=== PATIENT | male | born 1930 | race Caucasian/White ===

== ENCOUNTER 2019-02-18 21:11 | Emergency (ER) | payer MEDICARE, OTHER ==
--- NOTE | 2019-02-18 21:39 | ED Physician Documentation ---
PD HPI HEAD INJURY - Stated complaint Stated Complaint: FALL/ARM LAC - Chief complaint Chief Complaint: Laceration - History obtained from History obtained from: Patient, Family - History of Present Illness Mechanism of head injury: Fell Where head injury occurred: Home Timing - onset: Today Location of injury: Left, Front Associated symptoms: Amnesia (has dementia and does not remember how this happened). No: LOC, AMS Symptoms improve with: Rest Symptoms worsen with: Palpation Contributing factors: Anticoagulated Similar symptoms before: Diagnosis (fall) Recently seen: Not recently seen - Additional information Additional information: 88-year-old male with advanced dementia was trying to get a cath from his deck and the deck was wet he slipped and fell he has an abrasion to his chest wall and his left forearm as well as an abrasion above his left eye. He is on Coumadin for atrial fibrillation and did not have loss of consciousness. Review of Systems Constitutional: denies: Fever Eyes: denies: Decreased vision Ears: denies: Ear pain Nose: denies: Congestion Throat: denies: Oral lesions / sores, Sore throat Cardiac: reports: Chest pain / pressure Respiratory: denies: Dyspnea GI: denies: Abdominal Pain, Nausea, Vomiting : denies: Dysuria PD PAST MEDICAL HISTORY - Past Medical History Cardiovascular: Hypertension, High cholesterol, Atrial fibrillation Respiratory: None Endocrine/Autoimmune: None GI: Ulcerative colitis, Other : None HEENT: None Psych: None Musculoskeletal: None Derm: None - Past Surgical History Past Surgical History: Yes General: Colonoscopy HEENT: Cataracts - Present Medications Home Medications: Ambulatory Orders Medication Instructions Recorded Confirmed RX: Warfarin [Coumadin] 5 - 10 mg ORAL DAILY 05/24/13 11/27/15 Rosuvastatin [Crestor] 5 mg PO DAILY 05/24/13 11/27/15 Mesalamine [Lialda] 2.4 gm PO BID 06/10/15 11/27/15 Digoxin [Lanoxin] 125 mcg PO DAILY 11/27/15 11/27/15 Multivitamin [Theragran] 1 each PO DAILY 11/27/15 11/27/15 RX: Metoprolol Tartrate 25 mg PO BID 11/27/15 11/27/15 Vitamin C-Quercetin- [place] Tablet 1 tab PO DAILY 11/27/15 11/27/15 Azithromycin [Zithromax] 250 mg PO DAILY #6 tablet 06/30/16 - Allergies Allergies/Adverse Reactions: Allergies Allergy/AdvReac Type Severity Reaction Status Date / Time No Known Drug Allergies Allergy Verified 11/24/15 19:27 - Social History Does the pt smoke?: No Smoking Status: Never smoker Does the pt drink ETOH?: No Does the pt have substance abuse?: No - Immunizations Immunizations are current?: Yes - POLST Patient has POLST: No PD ED PE NORMAL - Vitals Vital signs reviewed: Yes (hypertensive ) - General General: No acute distress, Well developed/nourished - HEENT HEENT: PERRL, EOMI, Other (small bruise to the left eyebrow) - Neck Neck: Supple, no meningeal sign, No bony TTP - Cardiac Cardiac: No murmur, Other (irregularly irregular ) - Respiratory Respiratory: No respiratory distress, Clear bilaterally, Other (abrasion across the middle of the chest) - Abdomen Abdomen: Soft, Non tender - Back Back: No CVA TTP, No spinal TTP - Derm Derm: Normal color, Warm and dry, No rash - Extremities Extremities: No deformity, No calf tenderness / cord, Other (There is a deep abrasion to the left forearm imbedded with ) - Neuro Neuro: No motor deficit, No sensory deficit Eye Opening: Spontaneous Motor: Obeys Commands Verbal: Confused GCS Score: 14 - Psych Psych: Normal mood, Normal affect Results - Vitals Vitals: Vital Signs - 24 hr 02/18/19 02/18/19 21:19 23:33 Temperature 36.8 C 37.1 C Heart Rate 86 86 Respiratory 17 18 Rate Blood Pressure 177/112 H 166/82 H O2 Saturation 97 99 Oxygen O2 Source Room air - Labs Labs: Laboratory Tests 02/18/19 02/18/19 02/18/19 21:38 21:38 21:38 WBC 6.8 RBC 4.93 Hgb 14.8 Hct 46.5 MCV 94.3 H MCH 30.0 MCHC 31.8 L RDW 13.6 Plt Count 209 MPV 11.7 H Neut # (Auto) 4.9 Lymph # (Auto) 1.3 L [place] # (Auto) 0.4 Eos # (Auto) 0.1 Baso # (Auto) 0.0 Absolute Nucleated RBC 0.00 Nucleated RBC % 0.0 PT 27.2 H INR 2.4 H Sodium 143 Potassium 3.8 Chloride 105 Carbon Dioxide 28 Anion Gap 10.0 BUN 17 Creatinine 0.7 Estimated GFR (MDRD) 107 Glucose 191 H Calcium 9.0 Total Bilirubin 0.7 AST 23 ALT 19 Alkaline Phosphatase 55 Total Protein 6.7 Albumin 3.5 Globulin 3.2 Albumin/Globulin Ratio 1.1 Lipase 37 - Rads (name of study) CT head Radiology: Prelim report reviewed (Impression: No acute or focal intracranial abnormality.), EMP read indepedently, See rad report PD MEDICAL DECISION MAKING - ED course Complexity details: reviewed old records, reviewed results, re-evaluated patient, considered differential, d/w patient, d/w family ED course: 88-year-old male with advanced dementia has had a fall he is on Coumadin he has a small abrasion to his forehead his CT scan of his head is without evidence of intracranial hemorrhage. He does have an abrasion to his left forearm and to his anterior chest wall. These are attended to by the emergency department technician preventative medicine who after application of 4% lidocaine is able to scrub the wounds clean. I inspected the wounds and they appear clean and they are dressed with telfa and gauze Departure - Departure Disposition: 01 Home, Self Care Clinical Impression: Abrasions of multiple sites, Fall on same level from slipping, tripping or stumbling, Chest wall contusion Condition: Stable Instructions: ED Abrasion, ED Contusion Chest Wall Follow-Up: Diego Sepulveda MD [Primary Care Provider] - Comments: Today it appears you have significant abrasions and these will heal over the next 3 weeks. The chest wall contusion may give you a problem with some pain within the next 5 days. Follow-up with Dr. Sepulveda. Discharge Date/Time: 02/18/19 23:48
[2019-02-18] MEDS ORDERED: LIDOCAINE TOPICAL 4% 50 ML BOTTLE MM STA (21:45)
[2019-02-18 21:56] LABS: ALBUMIN 3.5 g/dL (3.2-5.5); ALBUMIN/GLOBULIN RATIO 1.1 (1.0-2.2); BASOPHILS % (AUTO) 0.4 %; BILIRUBIN,TOTAL 0.7 mg/dL (0.2-1.0); CREATININE 0.7 mg/dL (0.6-1.2); EOSINOPHILS # (AUTO) 0.1 10^3/uL (0.0-0.7); HGB - HEMOGLOBIN 14.8 g/dL (14.0-18.0); LYMPHOCYTES # (AUTO) 1.3 10^3/uL (1.5-3.5); LYMPHOCYTES % (AUTO) 19.4 %; MEAN CORPUSCULAR HGB CONC 31.8 g/dL (32.0-36.0); MEAN CORPUSCULAR VOLUME 94.3 fL (80.0-94.0); MEAN PLATELET VOLUME 11.7 fL (7.4-11.4); MONOCYTES # (AUTO) 0.4 10^3/uL (0.0-1.0); NEUTROPHILS # (AUTO) 4.9 10^3/uL (1.5-6.6); NEUTROPHILS % (AUTO) 72.8 %; PLT - PLATELET COUNT 209 10^3/uL (130-450); RED BLOOD COUNT 4.93 10^6/uL (4.70-6.10); RED CELL DISTRIBUTION WIDTH 13.6 % (12.0-15.0); TOTAL PROTEIN 6.7 g/dL (6.7-8.2); WHITE BLOOD COUNT 6.8 x10^3/uL (4.8-10.8)
[2019-02-18 22:03] LABS: INR 2.4 (0.8-1.2); PT - PROTHROMBIN TIME 27.2 secs (9.9-12.6)
--- NOTE | 2019-02-18 22:23 | CT Report ---
Reason: GLF head injury coumadin Procedure Date: 02/18/2019 Accession Number: [id number] / [id number] Procedure: CT - HEAD WO CPT Code: FULL RESULT: EXAM: CT HEAD EXAM DATE: 02/18/2019 10:06 PM. CLINICAL HISTORY: Fall with head injury. On Coumadin. COMPARISON: HEAD W/O 06/30/2016 5:24 PM. TECHNIQUE: Multiaxial CT images were obtained from the foramen magnum to the vertex. Reformats: Sagittal and coronal. IV contrast: None. In accordance with CT protocol optimization, one or more of the following dose reduction techniques were utilized for this exam: automated exposure control, adjustment of mA and/or KV based on patient size, or use of iterative reconstructive technique. FINDINGS: Parenchyma: No intraparenchymal hemorrhage. No evidence of mass, midline shift, or CT findings of infarction. Merino-white differentiation is distinct. Extraaxial Spaces: Normal for age. No subdural or epidural collections identified. Ventricles: Normal in size and position. Sinuses and Orbits: Bilateral endoscopic sinus surgery, otherwise unremarkable. Bones: No evidence of fracture or calvarial defect. Other: None. IMPRESSION: No acute or focal intracranial abnormality. RADIA
[2019-02-18 23:34] VITALS: BP 166/82
== END 2019-02-18 23:48 | disposition home or self-care (01) ==
LOC: ED 21:11
DX: S20.319A Abrasion of unspecified front wall of thorax, initial encounter (principal); S50.812A Abrasion of left forearm, initial encounter; S00.81XA Abrasion of other part of head, initial encounter; W01.0XXA Fall on same level from slipping, tripping and stumbling without subsequent striking against object, initial encounter; Y93.89 Activity, other specified; Y92.008 Other place in unspecified non-institutional (private) residence as the place of occurrence of the external cause; I10 Essential (primary) hypertension; F03.90 Unspecified dementia, unspecified severity, without behavioral disturbance, psychotic disturbance, mood disturbance, and anxiety; Z79.01 Long term (current) use of anticoagulants
CPT/HCPCS: 36415; 70450; 80053; 83690; 85025; 85610; 99282; 99284

== ENCOUNTER 2019-09-15 16:54 | Emergency (ER) | payer MEDICARE, OTHER ==
[2019-09-15] MEDS ORDERED: BUFFERED LIDOCAINE 10 ML SYRINGE SUBQ STA (17:11)
--- NOTE | 2019-09-15 17:13 | ED Physician Documentation ---
PD HPI HEAD INJURY - Stated complaint Stated Complaint: HEAD INJURY - Chief complaint Chief Complaint: Laceration - History obtained from History obtained from: Patient, Family - History of Present Illness Mechanism of head injury: Fell Where head injury occurred: Home Timing - onset: Today Location of injury: Right, Front Quality of pain: Pain Associated symptoms: No: LOC, AMS, Amnesia, Nausea / vomiting, Neck pain, Paresthesias, Seizures, Ear drainage, Nasal drainage Symptoms improve with: Rest Symptoms worsen with: Palpation, Movement Contributing factors: Anticoagulated Similar symptoms before: Diagnosis (laceration) Recently seen: Not recently seen - Additional information Additional information: 88-year-old male with history of advanced dementia and atrial fibrillation on Coumadin was walking in his driveway when he fell forward onto his forehead and lacerated his right eyebrow. He came into the house did not have any specific complaints has not had any nausea or vomiting denies any pain in his neck. Review of Systems Constitutional: denies: Fever Eyes: denies: Decreased vision Ears: denies: Ear pain Nose: denies: Congestion Throat: denies: Sore throat Cardiac: denies: Chest pain / pressure Respiratory: denies: Dyspnea, Cough GI: denies: Vomiting PD PAST MEDICAL HISTORY - Past Medical History Cardiovascular: Hypertension, High cholesterol, Atrial fibrillation Respiratory: None Neuro: Alzhiemer's, Dementia Endocrine/Autoimmune: None GI: Ulcerative colitis, Other : None HEENT: None Psych: None Musculoskeletal: None Derm: None - Past Surgical History Past Surgical History: Yes General: Colonoscopy HEENT: Cataracts - Present Medications Home Medications: Ambulatory Orders Medication Instructions Recorded Confirmed Rosuvastatin [Crestor] 5 mg PO DAILY 05/24/13 11/27/15 Warfarin [Coumadin] 5 - 10 mg ORAL DAILY 05/24/13 11/27/15 Mesalamine [Lialda] 2.4 gm PO BID 06/10/15 11/27/15 Digoxin [Lanoxin] 125 mcg PO DAILY 11/27/15 11/27/15 Metoprolol Tartrate 25 mg PO BID 11/27/15 11/27/15 Multivitamin [Theragran] 1 each PO DAILY 11/27/15 11/27/15 Vitamin C-Quercetin- [place] Tablet 1 tab PO DAILY 11/27/15 11/27/15 Azithromycin [Zithromax] 250 mg PO DAILY #6 tablet 06/30/16 - Allergies Allergies/Adverse Reactions: Allergies Allergy/AdvReac Type Severity Reaction Status Date / Time No Known Drug Allergies Allergy Verified 11/24/15 19:27 - Social History Does the pt smoke?: No Smoking Status: Never smoker Does the pt drink ETOH?: No Does the pt have substance abuse?: No - Immunizations Immunizations are current?: Yes - POLST Patient has POLST: No PD ED PE NORMAL - Vitals Vital signs reviewed: Yes (hypertensive ) - General General: No acute distress, Well developed/nourished, Other ([employer] [place] and interactive. Just doesn't remember) - HEENT HEENT: PERRL, EOMI, Other (There is a laceration through the right eyebrow which is widely gapping. ) - Neck Neck: Supple, no meningeal sign, No bony TTP - Respiratory Respiratory: No respiratory distress Results - Vitals Vitals: Vital Signs - 24 hr 09/15/19 09/15/19 16:55 17:00 Temperature 36.4 C L 36.4 C L Heart Rate 86 86 Respiratory 17 17 Rate Blood Pressure 172/98 H 172/98 H O2 Saturation 98 98 Oxygen O2 Source Room air - Labs Labs: Laboratory Tests 09/15/19 17:25 Whole Blood INR 1.8 H - Rads (name of study) CT head w/o Radiology: Prelim report reviewed (Impression: 1. No acute intracranial findings. 2 Cerebral atrophy and chronic microvascular ischemic changes. 3 Right forehead scalp contusion.), EMP read indepedently, See rad report Procedures - Laceration (location) right eyebrow Length in cm: 4 Wound type: Irregular, Flap, Clean Neurovascular status: Sensory intact, Motor intact, Vascular intact Anesthesia: Lidocaine 1%, With bicarb Wound Preparation: Hibiclens, Irrigated copiously NS, Wound explored, To the base Skin layer closure: Nylon, Interrupted, Size #-0 - enter number (6-0) Other: Patient tolerated well, No complications, Neurovascular intact, Tetanus UTD Complexity: Simple PD MEDICAL DECISION MAKING - ED course Complexity details: reviewed results, re-evaluated patient, considered differential, d/w patient, d/w family ED course: 88-year-old male with a fall in driveway who is on Coumadin has had a laceration to his right eyebrow. He has no evidence of intracranial hemorrhage and his eyebrow laceration is sutured and he tolerates this well. Departure - Departure Disposition: 01 Home, Self Care Clinical Impression: Facial laceration Qualifiers: Encounter type: initial encounter Qualified Code(s): S01.81XA - Laceration without foreign body of other part of head, initial encounter Condition: Stable Instructions: ED Laceration Facial Sutr Tape Follow-Up: Diego Sepulveda MD [Primary Care Provider] - Comments: Sutures will need to be removed in 5 days. Your INR today was 1.8.
--- NOTE | 2019-09-15 17:57 | CT Report ---
Reason: trauma, coumadin Procedure Date: 09/15/2019 Accession Number: [id number] / [id number] Procedure: CT - HEAD WO CPT Code: Final Report FULL RESULT: EXAM: CT HEAD EXAM DATE: 09/15/2019 05:31 PM. CLINICAL HISTORY: Trauma, coumadin. COMPARISON: HEAD W/O 02/18/2019 10:01 PM. TECHNIQUE: Multiaxial CT images were obtained from the foramen magnum to the vertex. Reformats: Sagittal and coronal. IV contrast: None. In accordance with CT protocol optimization, one or more of the following dose reduction techniques were utilized for this exam: automated exposure control, adjustment of mA and/or KV based on patient size, or use of iterative reconstructive technique. FINDINGS: PARENCHYMA: No acute hemorrhage, transcortical infarction or mass. Periventricular and white matter hypointensities are nonspecific but most consistent with chronic microvascular ischemic changes. EXTRA-AXIAL SPACES: No extra-axial fluid collections. No midline shift. VENTRICLES/SULCI: Enlargement of the lateral and third ventricles with prominence of the cortical sulci consistent with moderate cerebral volume loss. VASCULAR STRUCTURES: Arterial calcifications consistent with atherosclerosis. SINUSES: The visible paranasal sinuses and mastoid air cells are unremarkable. ORBITS: Status post left cataract surgery. BONES: No displaced acute calvarial fracture. OTHER: Right forehead scalp contusion. IMPRESSION: 1. No acute intracranial findings. 2. Cerebral atrophy and chronic microvascular ischemic changes. 3. Right forehead scalp contusion. RADIA
[2019-09-15 18:41] VITALS: BP 164/91
== END 2019-09-15 18:43 | disposition home or self-care (01) ==
LOC: ED 16:54
DX: S01.111A Laceration without foreign body of right eyelid and periocular area, initial encounter (principal); W18.30XA Fall on same level, unspecified, initial encounter; Y93.01 Activity, walking, marching and hiking; Y92.008 Other place in unspecified non-institutional (private) residence as the place of occurrence of the external cause; G30.9 Alzheimer's disease, unspecified; F02.80 Dementia in other diseases classified elsewhere, unspecified severity, without behavioral disturbance, psychotic disturbance, mood disturbance, and anxiety; I48.91 Unspecified atrial fibrillation; Z79.01 Long term (current) use of anticoagulants; I10 Essential (primary) hypertension
CPT/HCPCS: 12013; 70450; 85610; 99283; 99284

== ENCOUNTER 2020-03-30 03:58 | Outpatient (CLI) | payer MEDICARE, OTHER | END 2020-03-30 23:59 | disposition critical access hospital (66) | LOC: EMS 03:58 | PROVIDERS: ATTEND Surgery | DX: S09.90XA Unspecified injury of head, initial encounter (principal); W19.XXXA Unspecified fall, initial encounter; Z91.81 History of falling; Y92.009 Unspecified place in unspecified non-institutional (private) residence as the place of occurrence of the external cause; Z79.01 Long term (current) use of anticoagulants | CPT/HCPCS: A0425; A0429 ==

== ENCOUNTER 2020-03-30 04:20 | Emergency (ER) | payer MEDICARE, OTHER ==
--- NOTE | 2020-03-30 04:26 | ED Physician Documentation ---
History of Present Illness - Stated complaint Stated Complaint: GLF, HIT HEAD - History obtained from History obtained from: EMS - Additonal information Additional information: 89-year-old male with baseline dementia was found down by his who then called 911 and the patient arrives via ambulance. The patient denies any complaints. Patient reports he got up to go the restroom tonight and then woke up lying on the ground. ems reports known hx of a fib on coumadin. Review of Systems Unable to obtain: Dementia PD PAST MEDICAL HISTORY - Past Medical History Cardiovascular: Hypertension, High cholesterol, Atrial fibrillation Respiratory: None Neuro: Alzhiemer's, Dementia Endocrine/Autoimmune: None GI: Ulcerative colitis, Other : None HEENT: None Psych: None Musculoskeletal: None Derm: None - Past Surgical History Past Surgical History: Yes General: Colonoscopy HEENT: Cataracts - Present Medications Home Medications: Ambulatory Orders Medication Instructions Recorded Confirmed Warfarin [Coumadin] 5 - 10 mg ORAL DAILY 05/24/13 03/30/20 Digoxin [Lanoxin] 125 mcg PO DAILY 11/27/15 03/30/20 Metoprolol Tartrate 25 mg PO BID 11/27/15 03/30/20 Balsalazide Disodium [Colazal] 750 mg PO BID 03/30/20 03/30/20 - Allergies Allergies/Adverse Reactions: Allergies Allergy/AdvReac Type Severity Reaction Status Date / Time No Known Drug Allergies Allergy Verified 03/30/20 04:38 - Social History Does the pt smoke?: No Smoking Status: Never smoker Does the pt drink ETOH?: No Does the pt have substance abuse?: No - Immunizations Immunizations are current?: Yes - POLST Patient has POLST: No PD ED PE NORMAL - Vitals Vital signs reviewed: Yes - General General: No acute distress, Well developed/nourished, Other (Pleasantly demented 89-year-old male in no) - HEENT HEENT: PERRL, Other (Small erythema and swelling noticed to the left temporal region no hemotympanum bilaterally no septal hematoma no acute missing teeth no raccoon eyes no christian sign) - Neck Neck: Supple, no meningeal sign, Other (No step-offs or deformities of the cervical spine) - Cardiac Cardiac: RRR, No murmur - Respiratory Respiratory: No respiratory distress, Clear bilaterally - Abdomen Abdomen: Normal bowel sounds, Soft, Non tender, Non distended, No organomegaly, Other (No midline abdominal pulsatile mass) - Back Back: No spinal TTP - Derm Derm: Normal color, Warm and dry, No rash - Extremities Extremities: No deformity, No tenderness to palpate, Normal ROM s pain, No edema, No calf tenderness / cord, Other (No deformities of bilateral upper or lower extremities) - Neuro 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 No gross neurological deficit) - Psych Psych: Normal mood, Normal affect Results - Vitals Vitals: Vital Signs - 24 hr 03/30/20 03/30/20 03/30/20 04:20 04:27 04:47 Temperature 36.7 C Heart Rate 97 102 H Respiratory 17 18 Rate Blood Pressure 174/119 H 174/110 H O2 Saturation 97 97 03/30/20 03/30/20 03/30/20 04:52 05:08 06:05 Temperature Heart Rate 101 H 101 H Respiratory 18 16 15 Rate Blood Pressure 145/82 H 155/94 H O2 Saturation 97 96 Oxygen O2 Source Room air - EKG (time done) 04:30 Rate: Other (no stemi) - Labs Labs: Laboratory Tests 03/30/20 03/30/20 03/30/20 04:20 04:20 04:20 WBC 15.2 H RBC 5.14 Hgb 15.6 Hct 48.7 MCV 94.7 H MCH 30.4 MCHC 32.0 RDW 13.0 Plt Count 198 MPV 11.4 Neut # (Auto) 13.7 H Lymph # (Auto) 0.6 L [place] # (Auto) 0.9 Eos # (Auto) 0.0 Baso # (Auto) 0.0 Absolute Nucleated RBC 0.00 Nucleated RBC % 0.0 PT 28.9 H INR 2.7 H APTT 34.6 H Sodium 141 Potassium 3.9 Chloride 108 Carbon Dioxide 26 Anion Gap 7.0 BUN 19 Creatinine 0.7 Estimated GFR (MDRD) 106 Glucose 151 H Calcium 9.0 Total Bilirubin 1.4 H AST 28 ALT 21 Alkaline Phosphatase 50 Total Creatine Kinase 460 H Troponin I High Sens B-Natriuretic Peptide Total Protein 6.8 Albumin 3.8 Globulin 3.0 Albumin/Globulin Ratio 1.3 Lipase 26 Ethyl Alcohol < 5.0 03/30/20 03/30/20 04:20 04:20 WBC RBC Hgb Hct MCV MCH MCHC RDW Plt Count MPV Neut # (Auto) Lymph # (Auto) [place] # (Auto) Eos # (Auto) Baso # (Auto) Absolute Nucleated RBC Nucleated RBC % PT INR APTT Sodium Potassium Chloride Carbon Dioxide Anion Gap BUN Creatinine Estimated GFR (MDRD) Glucose Calcium Total Bilirubin AST ALT Alkaline Phosphatase Total Creatine Kinase Troponin I High Sens 18.7 B-Natriuretic Peptide 163 H Total Protein Albumin Globulin Albumin/Globulin Ratio Lipase Ethyl Alcohol PD MEDICAL DECISION MAKING - ED course Complexity details: reviewed results, re-evaluated patient, considered differential (closed head injury, acs, electrolyte disorder, uti, progressive dementia and weakness), d/w patient ED course: 81-year-old male with recurrent falls CT of the head's negative CT of the cervical spine negative chest x-ray negative x-ray of the pelvis is negative EKG shows known atrial fibrillation there is no STEMI troponins not elevated CK is mildly elevated BNP mildly elevated as well patient has good follow-up today with his primary care provider. Departure - Departure Disposition: 01 Home, Self Care Clinical Impression: Weakness Condition: Stable Instructions: ED Fall Dizziness Weakn Balance Follow-Up: Diego Sepulveda MD [Primary Care Provider] - 03/30/20 Comments: With your primary care provider today.
[2020-03-30 04:34] LABS: BASOPHILS % (AUTO) 0.2 %; HGB - HEMOGLOBIN 15.6 g/dL (14.0-18.0); LYMPHOCYTES # (AUTO) 0.6 10^3/uL (1.5-3.5); LYMPHOCYTES % (AUTO) 3.8 %; MEAN CORPUSCULAR HEMOGLOBIN 30.4 pg (27.0-31.0); MEAN CORPUSCULAR VOLUME 94.7 fL (80.0-94.0); MEAN PLATELET VOLUME 11.4 fL (7.4-11.4); MONOCYTES # (AUTO) 0.9 10^3/uL (0.0-1.0); MONOCYTES % (AUTO) 5.7 %; NEUTROPHILS # (AUTO) 13.7 10^3/uL (1.5-6.6); NEUTROPHILS % (AUTO) 89.6 %; PLT - PLATELET COUNT 198 10^3/uL (130-450); RED BLOOD COUNT 5.14 10^6/uL (4.70-6.10); WHITE BLOOD COUNT 15.2 x10^3/uL (4.8-10.8)
[2020-03-30 04:40] LABS: INR 2.7 (0.8-1.2); PT - PROTHROMBIN TIME 28.9 secs (9.9-12.6)
[2020-03-30 04:44] LABS: ALBUMIN 3.8 g/dL (3.2-5.5); ALBUMIN/GLOBULIN RATIO 1.3 (1.0-2.2); ALKALINE PHOSPHATASE 50 IU/L (42-121); ALT ALANINE AMINOTRANSFERASE 21 IU/L (10-60); AST ASPARTATE AMINOTRANSFERASE 28 IU/L (10-42); BILIRUBIN,TOTAL 1.4 mg/dL (0.2-1.0); BUN - BLOOD UREA NITROGEN 19 mg/dL (6-20); CARBON DIOXIDE - CO2 26 mmol/L (21-32); CHLORIDE 108 mmol/L (101-111); CK- CREATINE KINASE 460 IU/L (22-269); CREATININE 0.7 mg/dL (0.6-1.2); GLUCOSE 151 mg/dL (70-100); LIPASE 26 U/L (22-51); SODIUM 141 mmol/L (135-145); TOTAL PROTEIN 6.8 g/dL (6.7-8.2)
[2020-03-30 04:48] LABS: PARTIAL THROMBOPLASTIN TIME 34.6 secs (24.9-33.3)
[2020-03-30 07:07] VITALS: BP 135/83
--- NOTE | 2020-03-30 07:20 | XRAY Report ---
PROCEDURE: Pelvis 1 View INDICATIONS: fall TECHNIQUE: 1 view(s) of the pelvis acquired. COMPARISON: None. FINDINGS: Bones: No fractures or dislocations. No suspicious bony lesions. Soft tissues: Visualized bowel gas pattern is normal. No suspicious soft tissue calcifications. IMPRESSION: No acute osseous abnormality. Reviewed by: Vangie Rene MD, PhD on 03/30/2020 7:18 AM PDT Approved by: Vangie Rene MD, PhD on 03/30/2020 7:18 AM PDT Station ID: [id number]
--- NOTE | 2020-03-30 07:35 | XRAY Report ---
PROCEDURE: Chest 1 View X-Ray INDICATIONS: fall TECHNIQUE: One view of the chest was acquired. COMPARISON: 09/15/2015 FINDINGS: Surgical changes and devices: None. Lungs and pleura: No pleural effusions or pneumothorax. Lungs are clear of acute opacities.2.0 x 0. 8 cm density in the lateral left mid-lung is stable compared to prior exams. Mediastinum: Mediastinal contours appear normal. Heart size is normal. Bones and chest wall: No suspicious bony lesions. Overlying soft tissues appear unremarkable. IMPRESSION: No acute cardiopulmonary disease process. Reviewed by: Vangie Rene MD, PhD on 03/30/2020 7:34 AM PDT Approved by: Vangie Rene MD, PhD on 03/30/2020 7:34 AM PDT Station ID: [id number]
--- NOTE | 2020-03-30 07:52 | CT Report ---
PROCEDURE: HEAD WO INDICATIONS: fall, head injury TECHNIQUE: Noncontrast 4.5 mm thick angled axial sections acquired from the foramen magnum to the vertex. For r adiation dose reduction, the following was used: automated exposure control, adjustment of mA and/or kV according to patient size. COMPARISON: CT head 02/18/2019, 09/15/2019 FINDINGS: Image quality: Excellent. The ventricular system and cortical sulci demonstrate atrophy, consistent for patient's stated age. There are areas of hypointensity in the periventricular and subcortical white matter. There is no ac [place] intra or extra-axial fluid collection. No acute hemorrhage, mass lesion or midline shift. Brain stem is unremarkable. Globes are symmetrical. Sinuses demonstrate trace maxillary sinus mucosal thic kening. Osseous structures are intact. IMPRESSION: 1. No acute intracranial process. 2. Moderate atrophy and chronic microvascular ischemic changes. The above findings are concordant with preliminary report. Reviewed by: Sunshine Batista MD on 03/30/2020 7:51 AM PDT Approved by: Sunshine Batista MD on 03/30/2020 7:51 AM PDT Station ID: [id number]
--- NOTE | 2020-03-30 07:56 | CT Report ---
PROCEDURE: CERVICAL SPINE WO INDICATIONS: fall neck pain TECHNIQUE: Noncontrast 3 mm thick sections acquired from the skull base to the T4 level. Sagittal and coronal r eformats were then constructed. For radiation dose reduction, the following was used: automated exp osure control, adjustment of mA and/or kV according to patient size. COMPARISON: None. FINDINGS: Image quality: Excellent. Bones: No fractures or dislocations. Visualized superior ribs are intact. There is severe multilev el degenerative disc space narrowing most notable at C4-5, C5-6, C6-7. Soft tissues: Prevertebral soft tissues are normal in thickness. No paravertebral hematomas. No ap ical pneumothoraces. IMPRESSION: 1. Multilevel degenerative changes without visualized fracture. The above findings are concordant with preliminary report. Reviewed by: Sunshine Batista MD on 03/30/2020 7:55 AM PDT Approved by: Sunshine Batista MD on 03/30/2020 7:55 AM PDT Station ID: [id number]
== END 2020-03-30 07:09 | disposition home or self-care (01) ==
LOC: EDUNIT# → ED 04:20
DX: S09.90XA Unspecified injury of head, initial encounter (principal); W18.30XA Fall on same level, unspecified, initial encounter; Y92.009 Unspecified place in unspecified non-institutional (private) residence as the place of occurrence of the external cause; R53.1 Weakness; R29.6 Repeated falls; G30.9 Alzheimer's disease, unspecified; F02.80 Dementia in other diseases classified elsewhere, unspecified severity, without behavioral disturbance, psychotic disturbance, mood disturbance, and anxiety; I48.91 Unspecified atrial fibrillation; Z79.01 Long term (current) use of anticoagulants; I45.10 Unspecified right bundle-branch block; I10 Essential (primary) hypertension; M50.321 Other cervical disc degeneration at C4-C5 level
CPT/HCPCS: 36415; 70450; 71045; 72125; 72170; 80053; 80320; 82550; 83690; 83880; 84484; 85025; 85610; 85730; 93005; 99281; 99284

== ENCOUNTER 2020-06-10 10:20 | Emergency (ER) | payer MEDICARE, OTHER ==
[2020-06-10] MEDS ORDERED: SODIUM CHLORIDE 0.9% 1,000 ML IV STA (10:52)
[2020-06-10 11:04] LABS: BASOPHILS % (AUTO) 0.4 %; EOSINOPHILS # (AUTO) 0.1 10^3/uL (0.0-0.7); EOSINOPHILS % (AUTO) 0.7 %; HGB - HEMOGLOBIN 15.2 g/dL (14.0-18.0); LYMPHOCYTES % (AUTO) 14.4 %; MEAN CORPUSCULAR HEMOGLOBIN 30.3 pg (27.0-31.0); MEAN CORPUSCULAR HGB CONC 32.1 g/dL (32.0-36.0); MEAN CORPUSCULAR VOLUME 94.6 fL (80.0-94.0); MEAN PLATELET VOLUME 10.7 fL (7.4-11.4); MONOCYTES # (AUTO) 0.5 10^3/uL (0.0-1.0); MONOCYTES % (AUTO) 7.8 %; NEUTROPHILS # (AUTO) 5.2 10^3/uL (1.5-6.6); NEUTROPHILS % (AUTO) 76.4 %; PLT - PLATELET COUNT 253 10^3/uL (130-450); RED BLOOD COUNT 5.01 10^6/uL (4.70-6.10); RED CELL DISTRIBUTION WIDTH 12.8 % (12.0-15.0); WHITE BLOOD COUNT 6.8 x10^3/uL (4.8-10.8)
[2020-06-10 11:16] LABS: ALBUMIN 3.6 g/dL (3.2-5.5); ALBUMIN/GLOBULIN RATIO 1.1 (1.0-2.2); BILIRUBIN,TOTAL 1.1 mg/dL (0.2-1.0); CALCIUM 8.9 mg/dL (8.5-10.3); CREATININE 0.7 mg/dL (0.6-1.2)
--- NOTE | 2020-06-10 11:27 | ED Physician Documentation ---
PD HPI ABD PAIN - Stated complaint Stated Complaint: DIARRHEA - Chief complaint Chief Complaint: Abd Pain - History obtained from History obtained from: Patient, Family - History of Present Illness Timing - onset: How many days ago (4) Timing - duration: Days (4) Timing - details: Gradual onset Pain level max: 2 Pain level now: 1 Quality: Aching, Pain Location: LLQ Radiation: No: Chest, , Lower back, Left flank, Left shoulder, Right flank, Right shoulder, Upper back Improved by: Other (nothing) Worsened by: Other (nothing) Associated symptoms: Diarrhea, Hematochezia ( states small blood this morning). No: Fever, Nausea, Vomiting, Hematemesis, Melena, Hematuria Similar symptoms before: Diagnosis (ulcerative colitis) Recently seen: Not recently seen - Additional information Additional information: no change in medicaitons for UC. no missed doses. No recent travel or abx. Review of Systems Constitutional: denies: Fever, Chills GI: denies: Vomiting, Diarrhea Skin: denies: Rash Musculoskeletal: denies: Neck pain, Back pain Neurologic: denies: Headache PD PAST MEDICAL HISTORY - Past Medical History Cardiovascular: Hypertension, High cholesterol, Atrial fibrillation Respiratory: None Neuro: Alzhiemer's, Dementia Endocrine/Autoimmune: None GI: Ulcerative colitis, Other : None HEENT: None Psych: None Musculoskeletal: None Derm: None - Past Surgical History Past Surgical History: Yes General: Colonoscopy HEENT: Cataracts - Present Medications Home Medications: Ambulatory Orders Medication Instructions Recorded Confirmed Warfarin [Coumadin] 5 - 10 mg ORAL DAILY 05/24/13 03/30/20 Digoxin [Lanoxin] 125 mcg PO DAILY 11/27/15 03/30/20 Metoprolol Tartrate 25 mg PO BID 11/27/15 03/30/20 Balsalazide Disodium [Colazal] 750 mg PO BID 03/30/20 03/30/20 Amox/Clav 875/125 [Augmentin] 1 each PO Q8H #30 tablet 06/10/20 predniSONE [Deltasone] 20 mg PO DAILY #5 tablet 06/10/20 - Allergies Allergies/Adverse Reactions: Allergies Allergy/AdvReac Type Severity Reaction Status Date / Time No Known Drug Allergies Allergy Verified 06/10/20 10:41 - Social History Does the pt smoke?: No Smoking Status: Never smoker Does the pt drink ETOH?: No Does the pt have substance abuse?: No - Immunizations Immunizations are current?: Yes - POLST Patient has POLST: No PD ED PE NORMAL - Vitals Vital signs reviewed: Yes - General General: Alert and oriented X 3, No acute distress - HEENT HEENT: Moist mucous membranes - Neck Neck: Supple, no meningeal sign - Cardiac Cardiac: RRR, Strong equal pulses - Respiratory Respiratory: No respiratory distress, Clear bilaterally - Abdomen Abdomen: Normal bowel sounds, Soft, Non distended, Other (mild TTP LLQ without peritoneal signs.) - Derm Derm: Warm and dry - Extremities Extremities: No edema - Neuro Neuro: Alert and oriented X 3 - Psych Psych: Normal mood, Normal affect Results - Vitals Vitals: Vital Signs - 24 hr 06/10/20 06/10/20 06/10/20 10:34 11:07 11:44 Temperature 36.7 C Heart Rate 64 69 66 Respiratory 18 18 22 Rate Blood Pressure 130/76 123/70 O2 Saturation 97 97 96 06/10/20 12:41 Temperature 37 C Heart Rate 79 Respiratory 20 Rate Blood Pressure 148/96 H O2 Saturation 99 Oxygen O2 Source Room air - Labs Labs: Laboratory Tests 06/10/20 06/10/20 06/10/20 10:59 10:59 10:59 WBC 6.8 RBC 5.01 Hgb 15.2 Hct 47.4 MCV 94.6 H MCH 30.3 MCHC 32.1 RDW 12.8 Plt Count 253 MPV 10.7 Neut # (Auto) 5.2 Lymph # (Auto) 1.0 L [place] # (Auto) 0.5 Eos # (Auto) 0.1 Baso # (Auto) 0.0 Absolute Nucleated RBC 0.00 Nucleated RBC % 0.0 PT 32.0 H INR 3.1 H Sodium 142 Potassium 3.7 Chloride 106 Carbon Dioxide 26 Anion Gap 10.0 BUN 16 Creatinine 0.7 Estimated GFR (MDRD) 106 Glucose 155 H Calcium 8.9 Total Bilirubin 1.1 H AST 14 ALT 12 Alkaline Phosphatase 68 Total Protein 7.0 Albumin 3.6 Globulin 3.4 Albumin/Globulin Ratio 1.1 Lipase 19 L Last Dose Date Last Dose Time Digoxin 06/10/20 10:59 WBC RBC Hgb Hct MCV MCH MCHC RDW Plt Count MPV Neut # (Auto) Lymph # (Auto) [place] # (Auto) Eos # (Auto) Baso # (Auto) Absolute Nucleated RBC Nucleated RBC % PT INR Sodium Potassium Chloride Carbon Dioxide Anion Gap BUN Creatinine Estimated GFR (MDRD) Glucose Calcium Total Bilirubin AST ALT Alkaline Phosphatase Total Protein Albumin Globulin Albumin/Globulin Ratio Lipase Last Dose Date UNK Last Dose Time UNK Digoxin 0.5 - Rads (name of study) CT abd/pelvis Radiology: Prelim report reviewed, EMP read contemporaneously, See rad report PD MEDICAL DECISION MAKING - ED course Complexity details: reviewed results, re-evaluated patient, considered differential, d/w patient, d/w family ED course: 89-year-old male presents to the emergency department with diarrhea. Appears to have colitis, inflammatory versus infectious. Does have a history of ulcerative colitis, will trial on a short course of steroids. We'll also place on antibiotics to cover for possible infectious. Patient is well-appearing, nontoxic. Afebrile. Patient and family counseled regarding signs and symptoms for which I believe and urgent re-evaluation would be necessary. Patient with good understanding of and agreement to plan and is comfortable going home at this time This document was made in part using voice recognition software. While efforts are made to proofread this document, sound alike and grammatical errors may occur. CT abd/pelvis: 1. Sigmoid colitis either inflammatory or infectious in etiology. No evidence for free air or abscess formation. 2. Age-indeterminate anterior compression fracture of L2. This appears subacute to chronic in etiology. Recommend clinical correlation. 3. Interval development of 10 mm hypodense lesion in the neck of the pancreas in close proximity to the main pancreatic duct. 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 Recommend outpatient imaging using multi phase contrast-enhanced CT or MRI (pancreatic mass protocol). 4. Stable appearance of multiple hepatic cysts. Departure - Departure Disposition: 01 Home, Self Care Clinical Impression: Colitis Condition: Good Instructions: ED Colitis Ulcerative Follow-Up: Diego Sepulveda MD [Primary Care Provider] - Within 1 week Prescriptions: Amox/Clav 875/125 [Augmentin] 1 each PO Q8H #30 tablet predniSONE [Deltasone] 20 mg PO DAILY #5 tablet Comments: Take all antibiotics until gone. Return if you worsen. Follow-up with your doctor for further care. Drink plenty of fluids. Discharge Date/Time: 06/10/20 12:50
[2020-06-10 11:35] LABS: INR 3.1 (0.8-1.2)
[2020-06-10 11:36] LABS: DIGOXIN 0.5 ng/mL
[2020-06-10] MEDS ORDERED: IOVERSOL 320 100 ML VIAL IVP ONE ×2 (11:36→12:07)
--- NOTE | 2020-06-10 12:25 | CT Report ---
PROCEDURE: Abdomen/Pelvis W INDICATIONS: LLQ abd pain, bloody stool, h/o ulcerative colitis CONTRAST: IV CONTRAST: Optiray 320 ml: 100 PO CONTRAST: *NO PO CONTRAST TECHNIQUE: After the administration of intravenous contrast, 5 mm thick sections acquired from the diaphragms to the symphysis. 5 mm thick coronal and sagittal reformats were acquired. For radiation dose reducti on, the following was used: automated exposure control, adjustment of mA and/or kV according to javid ent size. COMPARISON: 11/24/2015. FINDINGS: Image quality: Excellent. ABDOMEN: Lung bases: Lung bases are clear. Heart size is normal. Solid organs: Liver and spleen are normal in size and enhancement. Redemonstration of numerous varia haresh sized hepatic hypodensities, likely representing cysts. A few coarse calcifications are again not ed within the liver. Gallbladder is unremarkable. Biliary system is non dilated. Pancreas enhances normally. New 10 mm hypodense lesion noted in the neck of the pancreas (image 25, series 3) in somew hat close proximity to the main pancreatic duct. No pancreatic ductal dilatation. No adrenal nodules. Kidneys demonstrate normal size and enhancement, without hydronephrosis. Stable nonobstructing left renal pelvic stone. Peritoneum and bowel: Postsurgical changes involving the right lower abdomen from previous bowel res ection. There is mild circumferential wall thickening of the sigmoid colon and proximal rectum with a ssociated pericolonic inflammatory stranding. No fluid collection or free air. A few reactive lymph n odes in the vicinity. No pelvic sidewall adenopathy. Remainder the visualized bowel loops demonstrate normal wall thickness and caliber. No free fluid or air. Nodes and vessels: No retroperitoneal or mesenteric adenopathy by size criteria. Aorta and inferior vena cava are normal in size. Miscellaneous: No ventral hernias. PELVIS: Genitourinary: Bladder wall thickness is normal. Miscellaneous: No inguinal hernias or adenopathy. Bones: No suspicious bony lesions. Age indeterminate anterior compression fracture of L2. This may be subacute to chronic in etiology. IMPRESSION: 1. Sigmoid colitis either inflammatory or infectious in etiology. No evidence for free air or abscess formation. 2. Age-indeterminate anterior compression fracture of L2. This appears subacute to chronic in etiolog y. Recommend clinical correlation. 3. Interval development of 10 mm hypodense lesion in the neck of the pancreas in close proximity to t he main pancreatic duct. 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 Recomme nd outpatient imaging using multi phase contrast-enhanced CT or MRI (pancreatic mass protocol). 4. Stable appearance of multiple hepatic cysts. Reviewed by: Kvng Osborne MD on 06/10/2020 11:24 AM RUST Approved by: Kvng Osborne MD on 06/10/2020 11:24 AM RUST Station ID: [id number]
[2020-06-10 12:42] VITALS: BP 148/96
--- NOTE | 2020-06-10 17:03 | ED Physician Documentation ---
ED Addendum - Addendum Addendum: 06/10/20 16:02 Called and left message for regarding pancreatic mass. Will need pancreatic MRI if they choose to pursue this. This can be done with his doctor. If the calls back JEET rosado MD will inform her of this, if not, I will call her again tomorrow.
--- NOTE | 2020-06-10 17:57 | ED Physician Documentation ---
ED Addendum - Addendum Addendum: 06/10/20 17:[address] Servin's note the did call back. I told her about the incidental finding in the pancreas and the potential that it was malignant. We talked for quite some time about goals of care and propose next step of MRI pancreatic protocol. She is vacillating whether or not to have any further work-up done given his advanced age and Alzheimer's. They have an appointment with Dr. Sepulveda on Friday and plan to discuss it with him then.
== END 2020-06-10 12:50 | disposition home or self-care (01) ==
LOC: ED 10:20
DX: K52.9 Noninfective gastroenteritis and colitis, unspecified (principal); K86.89 Other specified diseases of pancreas; Z87.19 Personal history of other diseases of the digestive system; I10 Essential (primary) hypertension; I48.91 Unspecified atrial fibrillation; Z79.01 Long term (current) use of anticoagulants; G30.9 Alzheimer's disease, unspecified; F02.80 Dementia in other diseases classified elsewhere, unspecified severity, without behavioral disturbance, psychotic disturbance, mood disturbance, and anxiety
CPT/HCPCS: 36415; 74177; 80053; 80162; 83690; 85025; 85610; 99284; Q9967

== ENCOUNTER 2020-06-19 12:55 | Emergency (ER) | payer MEDICARE, OTHER ==
[2020-06-19] MEDS ORDERED: IOVERSOL 320 100 ML VIAL IVP ONE ×2 (14:32→15:25)
[2020-06-19 14:46] LABS: BASOPHILS # (AUTO) 0.1 10^3/uL (0.0-0.1); BASOPHILS % (AUTO) 0.6 %; EOSINOPHILS # (AUTO) 0.1 10^3/uL (0.0-0.7); EOSINOPHILS % (AUTO) 0.9 %; HGB - HEMOGLOBIN 15.4 g/dL (14.0-18.0); LYMPHOCYTES # (AUTO) 1.3 10^3/uL (1.5-3.5); LYMPHOCYTES % (AUTO) 13.3 %; MEAN CORPUSCULAR HGB CONC 32.8 g/dL (32.0-36.0); MEAN CORPUSCULAR VOLUME 94.4 fL (80.0-94.0); MEAN PLATELET VOLUME 11.1 fL (7.4-11.4); MONOCYTES # (AUTO) 0.8 10^3/uL (0.0-1.0); MONOCYTES % (AUTO) 7.6 %; NEUTROPHILS # (AUTO) 7.6 10^3/uL (1.5-6.6); NEUTROPHILS % (AUTO) 76.9 %; PLT - PLATELET COUNT 260 10^3/uL (130-450); RED BLOOD COUNT 4.97 10^6/uL (4.70-6.10); RED CELL DISTRIBUTION WIDTH 12.8 % (12.0-15.0); WHITE BLOOD COUNT 9.9 x10^3/uL (4.8-10.8)
[2020-06-19 14:49] LABS: INR 1.9 (0.8-1.2); PT - PROTHROMBIN TIME 20.3 secs (9.9-12.6)
[2020-06-19 14:52] LABS: ALBUMIN 3.2 g/dL (3.2-5.5); ALBUMIN/GLOBULIN RATIO 0.8 (1.0-2.2); BILIRUBIN,TOTAL 0.9 mg/dL (0.2-1.0); CALCIUM 9.3 mg/dL (8.5-10.3); CREATININE 0.9 mg/dL (0.6-1.2)
[2020-06-19 14:58] LABS: DIGOXIN 0.4 ng/mL
--- NOTE | 2020-06-19 15:21 | CT Report ---
PROCEDURE: Abdomen/Pelvis W INDICATIONS: severe rectal bleeding, diarrhea, hx UC CONTRAST: IV CONTRAST: Optiray 320 ml: 100 PO CONTRAST: *NO PO CONTRAST TECHNIQUE: After the administration of nonionic IV contrast, 5 mm thick sections acquired from the diaphragms to the symphysis. 5 mm thick coronal and sagittal reformats were acquired. For radiation dose reducti on, the following was used: automated exposure control, adjustment of mA and/or kV according to javid ent size. COMPARISON: 06/10/2020 FINDINGS: Image quality: Excellent. ABDOMEN: Lung bases: Lung bases are clear. Heart size is normal. Solid organs: Liver demonstrates normal size. Within the liver, there are numerous simple appearing c ysts, the largest seen centrally measuring 7 cm. There is of dense liver calcification are seen, whic h are most likely benign. The spleen demonstrates normal size and demonstrates no focal abnormality. Gallbladder wall does not appear thickened. Biliary system is non dilated. Within the head of the pancreas anteriorly, there is a cystic focus seen measuring 1 cm, as on series 3 image 31. No pancreatic ductal dilatation is seen. No adrenal nodules. Kidneys demonstrate normal size and enhancement. Within the left renal pelvis, there is a 1 cm stone seen, which does not appear obstructing at this time. At the inferior pole of the left kidney, there is a 5 mm stone seen. Peritoneum and bowel: Within the sigmoid colon, there is focal wall thickening and enhancement seen, as on series 3 image 74. Bowel loops otherwise demonstrate normal wall thickness and caliber. No free fluid or air. An anast omotic staple line is seen involving the distal small bowel. Nodes and vessels: No retroperitoneal or mesenteric adenopathy by size criteria. Aorta and inferior vena cava are normal in size. Miscellaneous: No ventral hernias. PELVIS: Genitourinary: Bladder wall thickness is normal. Miscellaneous: No inguinal adenopathy. There is a fat-containing left inguinal area. Bones: No suspicious bony lesions. There is a remote appearing fracture involving the superior endp late of L2, with approximately 20% loss of height centrally. No acute appearing vertebral body compre ssion fractures. Mild dextroconvex scoliotic curvature is seen. IMPRESSION: Focal hyperenhancement wall thickening seen involving the sigmoid colon. No findings of perforation o r abscess can be seen. The appearance is overall slightly improved compared to the prior recent CT ex amination. When clinically appropriate, please consider a dedicated colonoscopy for further evaluation. There is a 1 cm cyst involving the head of the pancreas. When clinically appropriate, please consider a dedicated follow-up pancreas protocol CT or MRI for further evaluation. Nonobstructing left-sided kidney stones are seen, including a 1 cm stone within the left renal pelvis . Incidental note is made of: Numerous liver cysts Benign-appearing liver calcification Fat-containing left inguinal hernia Stable, remote appearing L2 compression deformity Reviewed by: Dom Vera MD on 06/19/2020 2:20 PM AKST Approved by: Dom Vera MD on 06/19/2020 2:20 PM AKST Station ID: [id number]
[2020-06-19 16:17] VITALS: BP 125/83
--- NOTE | 2020-06-19 17:24 | ED Physician Documentation ---
History of Present Illness - Stated complaint Stated Complaint: CAN'T CONTROL BOWELS - Chief complaint Chief Complaint: Abd Pain - History obtained from History obtained from: Family (. patient suffers from severe dementia) - Additonal information Additional information: 89-year-old man with past medical history of ulcerative colitis presents with diarrhea, status post colitis flare last week on Augmentin. Patient had taken 13 pills but stopped yesterday because he began to experience a rash on his back and trunk. He also had a 5-day course of steroids. At this time he is still experiencing diarrhea and it is worsening per his . He has had 3 episodes this morning with blood in it. His INR was 3.3 last week and his Coumadin dose was lowered from 5-2.5. Patient also has a pancreatic lesion that his primary doctor is in process of working up. patient denies fevers, abd pain, nausea or urinary sx. denies weakness or dizziness. Review of Systems Ten Systems: 10 systems reviewed and negative Constitutional: denies: Fever, Chills GI: reports: Diarrhea. denies: Abdominal Pain, Nausea PD PAST MEDICAL HISTORY - Past Medical History Past Medical History: Yes Cardiovascular: Hypertension, High cholesterol, Atrial fibrillation Respiratory: None Neuro: Alzhiemer's, Dementia Endocrine/Autoimmune: None GI: Ulcerative colitis, Other : None HEENT: None Psych: None Musculoskeletal: None Derm: None - Past Surgical History Past Surgical History: Yes General: Colonoscopy HEENT: Cataracts - Present Medications Home Medications: Ambulatory Orders Medication Instructions Recorded Confirmed Warfarin [Coumadin] 5 - 10 mg ORAL DAILY 05/24/13 03/30/20 Digoxin [Lanoxin] 125 mcg PO DAILY 11/27/15 03/30/20 Metoprolol Tartrate 25 mg PO BID 11/27/15 03/30/20 Balsalazide Disodium [Colazal] 750 mg PO BID 03/30/20 03/30/20 Amox/Clav 875/125 [Augmentin] 1 each PO Q8H #30 tablet 06/10/20 predniSONE [Deltasone] 20 mg PO DAILY #5 tablet 06/10/20 Cephalexin [Keflex] 750 mg PO BID 7 Days #14 capsule 06/19/20 Diphenoxylate/Atropine [Lomotil] 1 each PO QID PRN 3 Days #12 tablet 06/19/20 Prednisone 60 mg PO AC 5 Days #5 tab.ds.pk 06/19/20 metroNIDAZOLE [Flagyl] 500 mg PO TID 10 Days #30 tablet 06/19/20 - Allergies Allergies/Adverse Reactions: Allergies Allergy/AdvReac Type Severity Reaction Status Date / Time No Known Drug Allergies Allergy Verified 06/19/20 13:22 - Social History Does the pt smoke?: No Smoking Status: Never smoker Does the pt drink ETOH?: No Does the pt have substance abuse?: No - Immunizations Immunizations are current?: Yes - POLST Patient has POLST: No PD ED PE NORMAL - Vitals Vital signs reviewed: Yes - General General: Alert and oriented X 3 - HEENT HEENT: Atraumatic, PERRL, EOMI - Neck Neck: Supple, no meningeal sign - Cardiac Cardiac: RRR - Respiratory Respiratory: No respiratory distress, Clear bilaterally - Abdomen Abdomen: Normal bowel sounds, Non tender, Non distended - Rectal Rectal: Other (small amount of pink blood on rectal exam. +nonthrombosed hemorrhoids) - Back Back: No CVA TTP - Extremities Extremities: No deformity - Neuro Neuro: Other (alert and conversant at baseline) - Psych Psych: Normal mood, Normal affect Results - Vitals Vitals: Vital Signs - 24 hr 06/19/20 06/19/20 06/19/20 13:19 15:16 16:16 Temperature 36.8 C Heart Rate 74 79 76 Respiratory 16 18 18 Rate Blood Pressure 124/74 154/68 H 125/83 H O2 Saturation 100 97 98 Oxygen O2 Source Room air - Labs Labs: Laboratory Tests 06/19/20 06/19/20 06/19/20 14:20 14:20 14:20 WBC 9.9 RBC 4.97 Hgb 15.4 Hct 46.9 MCV 94.4 H MCH 31.0 MCHC 32.8 RDW 12.8 Plt Count 260 MPV 11.1 Neut # (Auto) 7.6 H Lymph # (Auto) 1.3 L [place] # (Auto) 0.8 Eos # (Auto) 0.1 Baso # (Auto) 0.1 Absolute Nucleated RBC 0.00 Nucleated RBC % 0.0 PT 20.3 H INR 1.9 H Sodium 143 Potassium 3.4 L Chloride 102 Carbon Dioxide 28 Anion Gap 13.0 BUN 14 Creatinine 0.9 Estimated GFR (MDRD) 80 L Glucose 147 H Calcium 9.3 Total Bilirubin 0.9 AST 15 ALT 13 Alkaline Phosphatase 63 Total Protein 7.0 Albumin 3.2 Globulin 3.8 Albumin/Globulin Ratio 0.8 L Lipase 22 Last Dose Date Last Dose Time Digoxin 06/19/20 14:20 WBC RBC Hgb Hct MCV MCH MCHC RDW Plt Count MPV Neut # (Auto) Lymph # (Auto) [place] # (Auto) Eos # (Auto) Baso # (Auto) Absolute Nucleated RBC Nucleated RBC % PT INR Sodium Potassium Chloride Carbon Dioxide Anion Gap BUN Creatinine Estimated GFR (MDRD) Glucose Calcium Total Bilirubin AST ALT Alkaline Phosphatase Total Protein Albumin Globulin Albumin/Globulin Ratio Lipase Last Dose Date Not Reportable Last Dose Time Not Reportable Digoxin 0.4 PD MEDICAL DECISION MAKING - ED course Complexity details: reviewed results, re-evaluated patient, d/w patient, d/w family ED course: 89-year-old man presents with ulcerative colitis flare, confirmed on CT today. Discussed with that patient will benefit from outpatient antibiotics and another steroid course. Will change antibiotics from Augmentin to Keflex and Flagyl. Educated about need for more frequent INR checks. Also prescribing an antidiarrheal and steroid. Discussed with primary doctor who will see the patient on Friday.Strict return precautions given Departure - Departure Disposition: Home, Self Care Clinical Impression: Diarrhea, Colitis, Blood in stool Condition: Good Instructions: Diarrhea Prescriptions: metroNIDAZOLE [Flagyl] 500 mg PO TID 10 Days #30 tablet Cephalexin [Keflex] 750 mg PO BID 7 Days #14 capsule Diphenoxylate/Atropine [Lomotil] 1 each PO QID PRN 3 Days #12 tablet PRN Reason: Diarrhea Prednisone 60 mg PO AC 5 Days #5 tab.ds.pk Comments: You have been seen in the emergency department for diarrhea. Your INR is 1.9, which is in a good range. I spoke with your primary doctor who recommends that you continue taking lower dose Coumadin at 2.5 mg. You may need to get your INR checked more regularly. Your hemoglobin was 15, which is normal. Make sure to stay well-hydrated. Your CT scan showed thickening of the sigmoid colon, so we will be putting you on steroids and antibiotics again. It also showed a spot on the pancreas and some spots on the liver that look like they are cysts. Follow- up with your primary doctor on Friday to schedule an outpatient MRI to invest igate this further. Discharge Date/Time: 06/19/20 16:44
== END 2020-06-19 16:44 | disposition home or self-care (01) ==
LOC: ED 12:55
DX: K51.90 Ulcerative colitis, unspecified, without complications (principal); K92.1 Melena; K64.9 Unspecified hemorrhoids; K86.2 Cyst of pancreas; K76.89 Other specified diseases of liver; K40.90 Unilateral inguinal hernia, without obstruction or gangrene, not specified as recurrent; I48.91 Unspecified atrial fibrillation; Z79.01 Long term (current) use of anticoagulants; I10 Essential (primary) hypertension; G30.9 Alzheimer's disease, unspecified; F02.80 Dementia in other diseases classified elsewhere, unspecified severity, without behavioral disturbance, psychotic disturbance, mood disturbance, and anxiety
CPT/HCPCS: 36415; 74177; 80053; 80162; 83690; 85025; 85610; 99284; Q9967

== ENCOUNTER 2020-07-23 10:49 | Outpatient (CLI) | payer MEDICARE, OTHER | END 2020-07-23 10:50 | disposition short-term general hospital (02) | LOC: EMS 10:49 | PROVIDERS: ATTEND Surgery | DX: S00.81XA Abrasion of other part of head, initial encounter (principal); W19.XXXA Unspecified fall, initial encounter; Y92.002 Bathroom of unspecified non-institutional (private) residence as the place of occurrence of the external cause | CPT/HCPCS: A0425; A0429 ==

== ENCOUNTER 2020-08-01 10:31 | Outpatient (CLI) | payer MEDICARE, OTHER | END 2020-08-01 10:32 | disposition short-term general hospital (02) | LOC: EMS 10:31 | PROVIDERS: ATTEND Surgery | DX: R50.9 Fever, unspecified (principal); R05 Cough; R39.198 Other difficulties with micturition | CPT/HCPCS: A0425; A0429; A0888 ==